=== PATIENT | female | born 1975 | race African-American/Black ===

== ENCOUNTER 2019-02-11 21:20 | Emergency (ER) | payer OTHER ==
[~2019-02-11] VITALS: Ht 165.1 cm; Wt 145.1 kg
[2019-02-11 22:21] LABS: Basophils # (auto) 0 uL; Eosinophils # (auto) 0 uL; Mean Corpuscular Hgb Conc. 32.7 g/dL (32.0-36.0); Monocytes # (auto) 0.5 uL; Neutrophils # (auto) 7.1 uL; White Blood Cell 8.7 10^3/uL (4.4-10.8)
[2019-02-11 22:24] LABS: Basophils % (auto) 0.2 % (0.0-2.0); Hematocrit 34.7 % (36.0-46.0); Hemoglobin 11.3 g/dL (12.2-16.2); Lymphocytes % (auto) 11.6 % (10.0-50.0); Mean Corpuscular Hemoglobin 25.8 pg (28.0-32.0); Mean Corpuscular Volume 78.9 fL (80.0-100.0); Monocytes % (auto) 6.3 % (0.0-12.0); Neutrophils % (auto) 81.9 % (37.0-80.0); Nucleated Red Blood Cells % 0.2 %; Platelet Count (auto) 249 10^3/uL (140-450); Red Cell Distribution Width 15.7 % (11.8-14.3)
[2019-02-11 22:39] LABS: Albumin 3.5 g/dL (3.4-5.0); Anion Gap 6 (5-15); Blood Urea Nitrogen 8 mg/dL (7-18); Calcium 8.9 mg/dL (8.5-10.1); Carbon Dioxide 27 mmol/L (21-32); Chloride 104 mmol/L (98-107); Glucose 115 mg/dL (74-106); Potassium 3.9 mmol/L (3.5-5.1); Sodium 137 mmol/L (136-145)
[2019-02-11 22:44] LABS: Alanine Aminotransferase 14 U/L (13-56); Alkaline Phosphatase 101 U/L (45-117); Aspartate Aminotransferase 9 U/L (15-37); BUN/Creatinine Ratio 8.8; GFR African American 86 mL/min; GFR Non-African American 71 mL/min; Total Protein 7.8 g/dL (6.4-8.2)
[2019-02-11 22:46] LABS: Urine Bacteria FEW /hpf (None Seen); Urine Blood TRACE /uL (Negative); Urine Mucus FEW (None Seen); Urine Specific Gravity 1.013 (1.001-1.035); Urine WBC 1 /hpf (0 - 5)
[2019-02-12 04:01] VITALS: BP 123/42
== END 2019-02-12 05:11 | disposition home or self-care (01) ==
LOC: ER 21:25
DX: R09.1 Pleurisy (principal); J06.9 Acute upper respiratory infection, unspecified; E11.9 Type 2 diabetes mellitus without complications; Z90.49 Acquired absence of other specified parts of digestive tract; Z88.0 Allergy status to penicillin; Z88.8 Allergy status to other drugs, medicaments and biological substances
CPT/HCPCS: 36415; 71046; 80053; 81001; 83735; 84484; 85025; 93005

== ENCOUNTER 2023-08-07 09:59 | Inpatient (IN) | payer OTHER ==
[~2023-08-07] VITALS: Ht 165.1 cm; Wt 157.0 kg
[2023-08-07 10:52] LABS: Urine Bacteria FEW /hpf (None Seen); Urine Blood TRACE /uL (Negative); Urine Clarity Clear (Clear); Urine Color Yellow (Yellow); Urine Mucus FEW (None Seen); Urine Protein, UAD TRACE (Negative); Urine Specific Gravity 1.025 (1.001-1.035); Urine WBC 5 /hpf (0 - 5)
[2023-08-07 11:03] LABS: Basophils # (auto) 0 10 ^3/uL (0-0.2); Basophils % (auto) 0.5 % (0.0-2.0); Eosinophils # (auto) 0.1 10 ^3/uL (0-0.8); Hematocrit 34.9 % (36.0-46.0); Hemoglobin 11.2 g/dL (12.2-16.2); Lymphocytes # (auto) 1.7 10 ^3/uL (0.4-5.4); Lymphocytes % (auto) 33.2 % (10.0-50.0); Mean Corpuscular Hemoglobin 25.5 pg (28.0-32.0); Mean Corpuscular Hgb Conc. 32.2 g/dL (32.0-36.0); Mean Corpuscular Volume 79.4 fL (80.0-100.0); Monocytes # (auto) 0.4 10 ^3/uL (0-1.3); Monocytes % (auto) 7.2 % (0.0-12.0); Neutrophils % (auto) 58.1 % (37.0-80.0); Nucleated Red Blood Cells % 0.1 %; Red Cell Distribution Width 15.3 % (11.8-14.3); White Blood Cell 5.1 10^3/uL (4.4-10.8)
[2023-08-07 11:29] LABS: Albumin 4.1 g/dL (3.2-4.8); Alkaline Phosphatase 113 U/L (46-116); Anion Gap 4 (5-15); Aspartate Aminotransferase 10 U/L (13-40); BUN/Creatinine Ratio 9.2 (10.0-20.0); Blood Urea Nitrogen 8 mg/dL (9-23); Calcium 9.6 mg/dL (8.7-10.4); Carbon Dioxide 29 mmol/L (20-30); Chloride 107 mmol/L (98-107); Glucose 97 mg/dL (74-106); Lipase 48 U/L (12-53); Potassium 3.9 mmol/L (3.5-5.1); Sodium 140 mmol/L (136-145)
[2023-08-07 11:30] LABS: Total Protein 7.4 g/dL (5.7-8.2)
[2023-08-07 11:34] LABS: Alanine Aminotransferase < 9 U/L (7-40)
[2023-08-07] MEDS ORDERED: DOCUSATE SOD 100 MG CAP PO PRN (13:15)
[2023-08-07] MEDS ORDERED: ONDANSETRON HCL 4 MG/2 ML VIAL IV PRN (13:15)
[2023-08-07 13:52] LABS: INR 1.05 (0.9-1.15)
[2023-08-07] MEDS: SODIUM CHLORIDE 0.9% 1,000 ML IV SCH (16:32)
[2023-08-07] MEDS: MORPHINE SULFATE 4 MG/ML SYR/VIAL IV ONE (16:42)
[2023-08-07] MEDS: ONDANSETRON HCL 4 MG/2 ML VIAL IV ONE (16:42)
[2023-08-07 16:48] VITALS: PULSE 99; RESP 20; O2SAT 96
[2023-08-08] VITALS (8 sets, daily range): BP systolic 113–134; BP diastolic 61–76; PULSE 66–88; RESP 16–20; TEMP 97.4–98.4; O2SAT 95–98
[2023-08-08] MEDS: MORPHINE SULFATE INJ 2 MG/ml SYRG IV PRN (01:19)
[2023-08-08 06:17] LABS: Basophils # (auto) 0 10 ^3/uL (0-0.2); Eosinophils # (auto) 0.1 10 ^3/uL (0-0.8); Hemoglobin 10.7 g/dL (12.2-16.2); Lymphocytes # (auto) 1.6 10 ^3/uL (0.4-5.4); Monocytes # (auto) 0.4 10 ^3/uL (0-1.3); Monocytes % (auto) 7.2 % (0.0-12.0); Neutrophils # (auto) 3.2 10 ^3/uL (1.6-8.6); Red Cell Distribution Width 15.6 % (11.8-14.3)
[2023-08-08 06:20] LABS: Basophils % (auto) 0.2 % (0.0-2.0); Hematocrit 33.8 % (36.0-46.0); Lymphocytes % (auto) 31.1 % (10.0-50.0); Mean Corpuscular Hemoglobin 25.3 pg (28.0-32.0); Mean Corpuscular Hgb Conc. 31.6 g/dL (32.0-36.0); Neutrophils % (auto) 60.5 % (37.0-80.0); Nucleated Red Blood Cells % 0.1 %; Red Blood Cells 4.22 10^6/uL (4.0-5.20); White Blood Cell 5.3 10^3/uL (4.4-10.8)
[2023-08-08 06:32] LABS: Alanine Aminotransferase 12 U/L (7-40); Alkaline Phosphatase 106 U/L (46-116); Anion Gap 3 (5-15); Aspartate Aminotransferase 10 U/L (13-40); BUN/Creatinine Ratio 11.3 (10.0-20.0); Blood Urea Nitrogen 9 mg/dL (9-23); Calcium 8.8 mg/dL (8.5-10.1); Carbon Dioxide 29 mmol/L (20-30); Chloride 109 mmol/L (98-107); Glucose 104 mg/dL (74-106); Potassium 3.7 mmol/L (3.5-5.1); Sodium 141 mmol/L (136-145)
[2023-08-08 06:33] LABS: Bilirubin, Total 0.8 mg/dL (0.2-1.0); Total Protein 6.9 g/dL (5.7-8.2)
[2023-08-08] MEDS: levoFLOXacin 500MG 100 ML IV SCH (10:54)
[2023-08-08] MEDS: ERGOCALCIFEROL 50,000 UNIT(1.25MG) CAP PO SCH (16:39)
[2023-08-08] MEDS: ACETAMINOPHEN 325 MG TAB PO PRN (21:10)
[2023-08-09 01:00] VITALS: BP 129/69; PULSE 79; RESP 18; TEMP 98; O2SAT 96
[2023-08-09 05:00] VITALS: BP 145/87; PULSE 68; RESP 20; TEMP 97.6; O2SAT 98
[2023-08-09 07:29] LABS: Chloride 108 mmol/L (98-107); Potassium 3.8 mmol/L (3.5-5.1); Sodium 139 mmol/L (136-145)
[2023-08-09 07:30] LABS: Anion Gap 2 (5-15); Calcium 8.9 mg/dL (8.5-10.1); Carbon Dioxide 29 mmol/L (20-30)
[2023-08-09 07:35] LABS: Alkaline Phosphatase 107 U/L (46-116); BUN/Creatinine Ratio 8.4 (10.0-20.0); Blood Urea Nitrogen 7 mg/dL (9-23); Glucose 100 mg/dL (74-106)
[2023-08-09 07:36] LABS: Aspartate Aminotransferase 13 U/L (13-40)
[2023-08-09 07:37] LABS: Total Protein 6.9 g/dL (5.7-8.2)
[2023-08-09 07:38] LABS: Bilirubin, Total 0.7 mg/dL (0.2-1.0)
[2023-08-09 07:57] LABS: Alanine Aminotransferase < 9 U/L (7-40)
[2023-08-09 09:58] VITALS: BP 135/78; PULSE 81; RESP 18; TEMP 97.8; O2SAT 99
[2023-08-09] MEDS ORDERED: LEVO500T91 PO (10:12)
[2023-08-09] MEDS ORDERED: ERGO1CAP23 PO (10:12)
[2023-08-09] MEDS ORDERED: CYAN500T3 PO (10:12)
[2023-08-09] MEDS: CYANOCOBALAMIN 500 MCG TAB PO SCH (10:52)
[2023-08-09 12:47] VITALS: BP 149/83; PULSE 77; RESP 18; TEMP 98.7; O2SAT 96
[2023-08-09 16:47] VITALS: BP 133/79; PULSE 76; RESP 18; TEMP 97.4; O2SAT 98
[2023-08-10 09:11] LABS: Hepatitis B Surface Antigen Negative (Negative)
[2023-08-10 09:32] LABS: Hepatitis C Antibody Negative (Negative)
== END 2023-08-09 19:00 | disposition home or self-care (01) | DRG 394 ==
LOC: ER 09:59 → OVERFLOW 14:09 → WEST WING 23:53
PROVIDERS: ADMIT Internal Medicine; ATTEND Internal Medicine
DX: K43.9 Ventral hernia without obstruction or gangrene (principal); N39.0 Urinary tract infection, site not specified; Z68.43 Body mass index [BMI] 50.0-59.9, adult; D64.9 Anemia, unspecified; K42.9 Umbilical hernia without obstruction or gangrene; E66.01 Morbid (severe) obesity due to excess calories; K52.9 Noninfective gastroenteritis and colitis, unspecified; G89.29 Other chronic pain; Z82.49 Family history of ischemic heart disease and other diseases of the circulatory system; Z82.62 Family history of osteoporosis; Z83.3 Family history of diabetes mellitus; Z88.0 Allergy status to penicillin; Z88.1 Allergy status to other antibiotic agents; Z90.49 Acquired absence of other specified parts of digestive tract
CPT/HCPCS: 36415; 74176; 80053; 81001; 82306; 82607; 83690; 84443; 85025; 85610; 86803; 86850; 86900; 86901; 87086; 87340; 96374; 96375; G0378; J1956; J2405

== ENCOUNTER 2023-09-23 11:39 | Emergency (ER) | payer OTHER ==
[~2023-09-23] VITALS: Ht 165.1 cm; Wt 152.0 kg
[~2023-09-23 11:39] MED LIST: CYAN500T3 PO; ERGO1CAP23 PO; LEVO500T91 PO
[2023-09-23 12:01] LABS: Basophils # (auto) 0 10 ^3/uL (0-0.2); Basophils % (auto) 0.6 % (0.0-2.0); Eosinophils # (auto) 0.1 10 ^3/uL (0-0.8); Lymphocytes # (auto) 1.8 10 ^3/uL (0.4-5.4); Mean Corpuscular Hemoglobin 25.1 pg (28.0-32.0); Monocytes # (auto) 0.2 10 ^3/uL (0-1.3); White Blood Cell 5.1 10^3/uL (4.4-10.8)
[2023-09-23 12:03] LABS: Eosinophils % (auto) 1.6 % (0.0-7.0); Hematocrit 37.7 % (36.0-46.0); Mean Corpuscular Hgb Conc. 31.8 g/dL (32.0-36.0); Mean Corpuscular Volume 79.2 fL (80.0-100.0); Monocytes % (auto) 4.4 % (0.0-12.0); Neutrophils % (auto) 58.4 % (37.0-80.0); Nucleated Red Blood Cells % 0.1 %; Red Blood Cells 4.76 10^6/uL (4.0-5.20); Red Cell Distribution Width 15.8 % (11.8-14.3)
[2023-09-23 12:19] LABS: Alanine Aminotransferase 13 U/L (7-40); Albumin 4.3 g/dL (3.2-4.8); Alkaline Phosphatase 119 U/L (46-116); Anion Gap 2 (5-15); Aspartate Aminotransferase 10 U/L (13-40); Blood Urea Nitrogen 7 mg/dL (9-23); Calcium 9.7 mg/dL (8.5-10.1); Carbon Dioxide 30 mmol/L (20-30); Chloride 107 mmol/L (98-107); Glucose 149 mg/dL (74-106); Potassium 4.2 mmol/L (3.5-5.1); Sodium 139 mmol/L (136-145)
[2023-09-23 12:20] LABS: Bilirubin, Total 0.8 mg/dL (0.2-1.0); Total Protein 7.5 g/dL (5.7-8.2)
[2023-09-23] MEDS ORDERED: CYCL-839 PO (13:51)
[2023-09-23] MEDS ORDERED: DICL50TA2 PO (13:51)
[2023-09-23 14:30] VITALS: BP 129/86; RESP 16; TEMP 97.5
[2023-09-23 14:31] VITALS: PULSE 76; O2SAT 100
== END 2023-09-23 14:37 | disposition home or self-care (01) ==
LOC: ER 11:39
DX: F41.9 Anxiety disorder, unspecified (principal); R10.2 Pelvic and perineal pain; R07.89 Other chest pain; E66.01 Morbid (severe) obesity due to excess calories; E11.9 Type 2 diabetes mellitus without complications; Z68.43 Body mass index [BMI] 50.0-59.9, adult; Z98.890 Other specified postprocedural states; Z88.0 Allergy status to penicillin; Z88.8 Allergy status to other drugs, medicaments and biological substances; Z79.899 Other long term (current) drug therapy
CPT/HCPCS: 36415; 80053; 84484; 84702; 85025; 93005

== ENCOUNTER 2023-09-30 12:29 | Emergency (ER) | payer OTHER ==
[~2023-09-30] VITALS: Ht 165.1 cm; Wt 153.9 kg
[~2023-09-30 12:29] MED LIST changes: +CYCL-839 PO; +DICL50TA2 PO
[2023-09-30 13:22] LABS: Basophils # (auto) 0 10 ^3/uL (0-0.2); Basophils % (auto) 0.5 % (0.0-2.0); Eosinophils # (auto) 0.1 10 ^3/uL (0-0.8); Hemoglobin 11.3 g/dL (12.2-16.2); Lymphocytes # (auto) 1.8 10 ^3/uL (0.4-5.4); Monocytes # (auto) 0.4 10 ^3/uL (0-1.3); Nucleated Red Blood Cells % 0.1 %; White Blood Cell 5.8 10^3/uL (4.4-10.8)
[2023-09-30 13:24] LABS: Eosinophils % (auto) 1.2 % (0.0-7.0); Hematocrit 35.3 % (36.0-46.0); Lymphocytes % (auto) 31.1 % (10.0-50.0); Mean Corpuscular Hemoglobin 25.3 pg (28.0-32.0); Mean Corpuscular Hgb Conc. 31.9 g/dL (32.0-36.0); Mean Corpuscular Volume 79.4 fL (80.0-100.0); Monocytes % (auto) 6.1 % (0.0-12.0); Neutrophils # (auto) 3.6 10 ^3/uL (1.6-8.6); Neutrophils % (auto) 61.1 % (37.0-80.0); Red Blood Cells 4.45 10^6/uL (4.0-5.20); Red Cell Distribution Width 15.7 % (11.8-14.3)
[2023-09-30 13:29] LABS: Urine Bacteria FEW /hpf (None Seen); Urine Blood TRACE /uL (Negative); Urine Budding Yeast OCCASIONAL /hpf (None Seen); Urine Clarity Clear (Clear); Urine Color Yellow (Yellow); Urine Hyaline Cast FEW /lpf (0 - 2); Urine Mucus FEW (None Seen); Urine Protein, UAD TRACE (Negative); Urine Specific Gravity 1.035 (1.001-1.035); Urine Urobilinogen 2 mg/dL (Negative); Urine WBC 2 /hpf (0 - 5); Urine pH 5.5 (5.0-9.0)
[2023-09-30 13:40] LABS: Alanine Aminotransferase 12 U/L (7-40); Albumin 4.2 g/dL (3.2-4.8); Alkaline Phosphatase 119 U/L (46-116); Anion Gap 2 (5-15); Aspartate Aminotransferase 9 U/L (13-40); BUN/Creatinine Ratio 14.5 (10.0-20.0); Blood Urea Nitrogen 12 mg/dL (9-23); Calcium 9.6 mg/dL (8.5-10.1); Carbon Dioxide 30 mmol/L (20-30); Chloride 109 mmol/L (98-107); Glucose 94 mg/dL (74-106); Potassium 3.7 mmol/L (3.5-5.1); Sodium 141 mmol/L (136-145)
[2023-09-30 13:41] LABS: Bilirubin, Total 0.6 mg/dL (0.2-1.0); Total Protein 7.1 g/dL (5.7-8.2)
[2023-09-30] MEDS ORDERED: SENN1CAP4 PO (14:37)
[2023-09-30] MEDS ORDERED: METO-281 PO (14:37)
[2023-09-30 14:53] VITALS: BP 147/73; PULSE 77; RESP 17; TEMP 98.2; O2SAT 97
== END 2023-09-30 14:55 | disposition home or self-care (01) ==
LOC: ER 12:29
DX: K46.9 Unspecified abdominal hernia without obstruction or gangrene (principal); R10.2 Pelvic and perineal pain; R10.13 Epigastric pain; E66.01 Morbid (severe) obesity due to excess calories; R71.8 Other abnormality of red blood cells; E11.9 Type 2 diabetes mellitus without complications; Z68.43 Body mass index [BMI] 50.0-59.9, adult; Z98.890 Other specified postprocedural states; Z88.8 Allergy status to other drugs, medicaments and biological substances; Z88.0 Allergy status to penicillin; Z79.899 Other long term (current) drug therapy
CPT/HCPCS: 36415; 80053; 81001; 81025; 84702; 85025

== ENCOUNTER → 2024-08-05 | Outpatient (CLI) | payer MEDICARE ==
[~2024-08-05] MED LIST changes: +METO-281 PO; +SENN1CAP4 PO
[2024-08-05 13:39] LABS: Albumin 4.3 g/dL (3.2-4.8); Bilirubin, Total 0.6 mg/dL (0.2-1.0)
[2024-08-05 14:02] LABS: Bilirubin, Direct 0.2 mg/dL (<0.3)
== END | disposition home or self-care (01) ==
LOC: LAB 12:03
PROVIDERS: ATTEND Podiatrist
DX: B35.1 Tinea unguium (principal)
CPT/HCPCS: 36415; 80076

== ENCOUNTER → 2024-12-24 | Day surgery (SDC) | payer MEDICARE ==
[2024-12-20 11:52] LABS: Hematocrit 38.7 % (36.0-46.0); Hemoglobin 12.6 g/dL (12.2-16.2); Mean Corpuscular Hemoglobin 26.1 pg (28.0-32.0); Mean Corpuscular Volume 80.0 fL (80.0-100.0); Nucleated Red Blood Cells % 0.1 %
[2024-12-20 12:04] LABS: INR 1.0 (0.9-1.15); Partial Thromboplastin Time 28.7 SEC (24.5-34.5); Prothrombin Time 10.6 sec (9.3-11.8)
[2024-12-20 12:09] LABS: Alanine Aminotransferase 11 U/L (7-40); Albumin 4.4 g/dL (3.2-4.8); Alkaline Phosphatase 107 U/L (46-116); Anion Gap 7 (5-15); BUN/Creatinine Ratio 11.3 (10.0-20.0); Bilirubin, Total 0.8 mg/dL (0.2-1.0); Blood Urea Nitrogen 11 mg/dL (9-23); Calcium 9.1 mg/dL (8.7-10.4); Carbon Dioxide 27 mmol/L (20-31); Glucose 92 mg/dL (74-106); Potassium 4.4 mmol/L (3.5-5.1); Sodium 141 mmol/L (136-145); Total Protein 7.1 g/dL (5.7-8.2)
[2024-12-20 12:10] LABS: Chloride 107 mmol/L (98-107)
[~2024-12-24] VITALS: Ht 165.1 cm; Wt 146.5 kg
[~2024-12-24] MED LIST changes: +ACE3T PO; +APPL300T4 PO; +CHOL100067 PO; -CYAN500T3 PO; -CYCL-839 PO; -DICL50TA2 PO; -ERGO1CAP23 PO; -LEVO500T91 PO; -METO-281 PO; -SENN1CAP4 PO
[2024-12-24 12:40] VITALS: TEMP 97.6
[2024-12-24] MEDS: fentaNYL CITRATE 100 MCG/2 ML VL ONE (13:35)
[2024-12-24] MEDS: MIDAZOLAM HCL 5 MG/ML-1ML VIAL ONE (13:35)
[2024-12-24] MEDS: diphenhdrAMINE HCL 50 MG/1 ML VL ONE (13:35)
[2024-12-24 13:56] VITALS: PULSE 85; RESP 15; O2SAT 96
--- NOTE | 2024-12-24 14:05 | DVHOP2 ---
Operative Report DATE OF OPERATION: 12/24/24 PROCEDURE: Colonoscopy with hot snare polypectomy. PREOPERATIVE INDICATION: The patient is a 49 -year-old female undergoing colonoscopy for colon cancer screening POSTOPERATIVE DIAGNOSES: 1. Patient had a 1.5-2 cm benign-appearing polyp on a short stalk in the splenic flexure at about 60 cm above the anal verge which was removed completely via hot snare polypectomy and the specimens were retrieved 2. Patient had a 2 mm benign-appearing rectal polyp that was seen and removed by cold biopsy forceps 3. Mild abuse scattered diverticular disease 4. Trace internal hemorrhoids otherwise completely normal colonoscopy examination up to the caecum PROCEDURE PERFORMED BY: Liliya Tomas M.D. SCOPE: Olympus videocolonoscope. ASA CLASS: 2 PREOPERATIVE MEDICATIONS: Versed 4 mg, Fentanyl 100 mcg, Benadryl 50 mg PROCEDURE IN DETAIL: After obtaining an informed consent, the patient was placed on left lateral decubitus position. She was then sedated with the above medications. A rectal examination was performed that was normal. The colonoscope was then passed through the anus into the rectosigmoid and through the descending, transverse, and ascending colon up to the cecum with visualization of the appendiceal orifice, base of the cecum and the ileocecal valve. The colonoscope was then withdrawn. Patient had an occasional scattered diverticulum noted Patient had a 1.5-2 cm benign-appearing polyp on a short stalk seen in the splenic flexure at 60 cm above the anal verge This was removed completely via hot snare polypectomy and the specimens were retrieved. No masses were seen In the rectum there was a 1-2 mm benign-appearing polyp that was seen and removed by cold biopsy forceps. On retroflexion and straight on view the patient had trace internal hemorrhoids The patient tolerated the procedure well without difficulty. WITHDRAWAL TIME: 12 minutes QUALITY OF THE PREP: [place] Bowel Prep score: 9. COMPLICATIONS : None SPECIMENS: Splenic flexure polyp Rectal polyp DISPOSITION: Status D/C to home PLAN: 1. Repeat colonoscopy base on biopsy result likely in 3-5 years 2. Resume GI soft diet advance as tolerated 3. Increase fluid and fiber intake 4. Outpatient follow up with me in 4-6 weeks to review results and discuss fu rther management 5. Hold aspirin NSAIDs for one week LILIYA TOMAS MD Dec 24, 2024 14:05
[2024-12-24 14:25] VITALS: BP 108/76; PULSE 74; RESP 16; O2SAT 97
== END | disposition home or self-care (01) ==
LOC: GI 12:13
PROVIDERS: ATTEND Internal Medicine Gastroenterology
DX: K92.1 Melena (principal); K57.30 Diverticulosis of large intestine without perforation or abscess without bleeding; K62.1 Rectal polyp; D12.3 Benign neoplasm of transverse colon; K64.8 Other hemorrhoids; J45.909 Unspecified asthma, uncomplicated; G89.29 Other chronic pain; Z98.890 Other specified postprocedural states; Z98.891 History of uterine scar from previous surgery; M19.90 Unspecified osteoarthritis, unspecified site; Z79.899 Other long term (current) drug therapy; Z88.0 Allergy status to penicillin
CPT/HCPCS: 36415; 45380; 45385; 80053; 84702; 85025; 85610; 85730; 88305; J1200; J2250; J3010